=== PATIENT | female | born 1955 | race Caucasian/White ===

== ENCOUNTER 2017-03-31 08:23 | Outpatient (CLI) | payer BC ==
[~2017-03-31] VITALS: Ht 157.5 cm; Wt 104.5 kg
[2017-03-31] MEDS ORDERED: FUROSEMIDE40 MG PO (09:16)
[2017-03-31] MEDS ORDERED: ZOLOFT100 MG PO (09:17)
[2017-03-31] MEDS ORDERED: OMEPRAZOLE20 M1 PO (09:18)
[2017-03-31] MEDS ORDERED: XIFAXAN550 MG PO (09:18)
[2017-03-31] MEDS ORDERED: PRILOSEC10 M1 PO (09:18)
[2017-03-31] MEDS ORDERED: ENULOSE10 G/15 ML PO (09:19)
[2017-03-31] MEDS ORDERED: COLACE100 MG PO (09:19)
[2017-03-31] MEDS ORDERED: TIROSINT13 MCG PO (09:20)
[2017-03-31] MEDS ORDERED: ALDACTONE100 MG PO (09:20)
[2017-03-31] MEDS ORDERED: ROPINIROLE HCL2 MG PO (09:20)
[2017-03-31] MEDS ORDERED: LASIX40 MG PO (09:21)
[2017-03-31] MEDS ORDERED: MIDODRINE HCL5 MG PO (09:21)
[2017-03-31 09:31] VITALS: Ht 157.5 cm; Wt 104.5 kg
[2017-03-31 09:42] LABS: BASOPHILS 0.2 % (0-2); EOSINOPHILS 0.6 % (0-7); HEMATOCRIT 30.7 % (36.0-48.0); HEMOGLOBIN 9.8 g/dL (12-16); IMMATURE GRANULOCYTES 0.6 % (0-5); LYMPHOCYTES 5.8 % (15-50); MCH 28.2 pg (26.0-34.0); MCHC 31.9 g/dL (31.0-37.0); MCV 88.2 fL (80.0-100.0); MEAN PLATELET VOLUME 8.8 fL (7.4-10.4); MONOCYTES 14.9 % (2-11); NEUTROPHILS 77.9 % (40-80); PLATELET COUNT 177 10x3/uL (130-400); RBC 3.48 10x6/uL (4.00-5.40); WBC 8.2 10x3/uL (4.8-10.8)
[2017-03-31] MEDS ORDERED: HUMALOG 30100 UNITS/ SC (09:47)
[2017-03-31] MEDS ORDERED: VITAMIN D5000 UNIT PO (09:48)
[2017-03-31] MEDS ORDERED: GLUCAGEN1 MG/VIAL IM (09:48)
[2017-03-31] MEDS ORDERED: PROVENTIL/2.5 MG/3 M INH (09:48)
[2017-03-31] MEDS ORDERED: ZOFRAN4 MG PO (09:49)
[2017-03-31] MEDS ORDERED: MAALOX ADVANCE355 ML PO (09:49)
[2017-03-31] MEDS ORDERED: BISCOLAX10 MG/SUPP RC (09:49)
[2017-03-31] MEDS ORDERED: ACETAMINOPHEN325 MG PO (09:50)
[2017-03-31 09:57] LABS: ANION GAP 14.4 mmol/L (8-16); CALCIUM 8.6 mg/dL (8.5-10.1); CREATININE - SERUM 1.6 mg/dL (0.6-1.3); POTASSIUM - SERUM 4.4 mmol/L (3.5-5.1)
[2017-03-31 10:04] LABS: APTT 38.7 SECONDS (22.8-39.4); INR 1.4 (0.85-1.17)
--- NOTE | 2017-03-31 16:53 | NUR ---
1200 IV DC WITH CATHER TIP INTACT
== END 2017-03-31 13:45 | disposition home or self-care (01) ==
LOC: D.CT 08:23 → D.OPS 08:23 → D.CT 09:00 → D.OPS 13:45
PROVIDERS: General Practice
DX: R18.8 Other ascites (principal); Z01.812 Encounter for preprocedural laboratory examination